=== PATIENT | female | born 1960 | race Caucasian/White ===

== ENCOUNTER 2017-09-05 17:05 | Emergency (ER) | payer BC ==
[2017-09-05 18:08] LABS: Hematocrit 42 % (35-47); Hemoglobin 14.8 g/dl (12.0-16.0); Mean Corpuscular HGB Conc 35 g/dl (31-36); Mean Corpuscular Hemoglobin 33 pg (27-31); Mean Corpuscular Volume 93 fL (80-97); Mean Platelet Volume 6 um3 (7.4-10.4); Red Blood Count 4.56 10^6/ul (4.0-5.4); Red Cell Distribution Width 13 % (10.5-15)
--- NOTE | 2017-09-05 18:08 | ED ---
Abdominal Pain/Female - HPI Summary HPI Summary: 56F presents with what described as muscle cramps in lower abdomen. They seem to happen in one spot in RLQ. She states started after cleaning house yesterday. She states pain last seconds. She states had three episodes of this yesterday and 5 episodes today. When pain comes it is sharp. She has had normal appetite. She has had normal BM today. She denies any n/v/d/c. She denies any fever. She denies any hematochezia, melena, dysuria, hematuria, flank pain, vaginal discharge, dysuria, frequency or urgency. She states this pain feels similar to gas bubbles has had in past. She denies any previous abdominal surgeries. - History of Current Complaint Chief Complaint: EDAbdPain Stated Complaint: RIGHT SIDE ABD PAIN Time Seen by Provider: 09/05/17 17:30 Pain Intensity: 0 Allergies/Adverse Reactions: Allergies Allergy/AdvReac Type Severity Reaction Status Date / Time Sulfa Antibiotics Allergy Hives Verified 09/05/17 17:49 PMH/Surg Hx/FS Hx/Imm Hx Endocrine/Hematology History: Denies: Hx Anticoagulant Therapy, Hx Diabetes Cardiovascular History: Reports: Hx Hypertension - Cancer History Hx Chemotherapy: No Hx Radiation Therapy: No Infectious Disease History: No Infectious Disease History: Denies: Traveled Outside the [place] in Last 30 Days - Family History Known Family History: Negative: Renal Disease - Social History Alcohol Use: None Substance Use Type: Reports: None Smoking Status (MU): Light Every Day Tobacco Smoker Review of Systems Negative: Fever Negative: Chest Pain Negative: Shortness Of Breath Positive: Abdominal Pain. Negative: Vomiting, Diarrhea, Nausea All Other Systems Reviewed And Are Negative: Yes Physical Exam Triage Information Reviewed: Yes Vital Signs On Initial Exam: Initial Vitals Temp Pulse Resp BP Pulse Ox 99.1 F 81 18 171/93 99 09/05/17 17:15 09/05/17 17:15 09/05/17 17:15 09/05/17 17:15 09/05/17 17:15 Vital Signs Reviewed: Yes Appearance: Positive: Well-Appearing Skin: Positive: Warm, Dry Head/Face: Positive: Normal Head/Face Inspection Eyes: Positive: Normal, EOMI, MICKY, Conjunctiva Clear ENT: Positive: Normal ENT inspection, Pharynx normal, TMs normal Respiratory/Lung Sounds: Positive: Clear to Auscultation, Breath Sounds Present Cardiovascular: Positive: Normal, RRR Abdomen Description: Positive: Nontender, Soft, Other: - neg rovsings, neg carnett sign Bowel Sounds: Positive: Present Musculoskeletal: Positive: Normal Neurological: Positive: Normal Psychiatric: Positive: Other - tearful - David Coma Scale Coma Scale Total: 15 Diagnostics - Vital Signs Vital Signs Temp Pulse Resp BP Pulse Ox 09/05/17 17:38 86 98 09/05/17 17:35 163/85 09/05/17 17:15 99.1 F 81 18 171/93 99 - Laboratory Result Diagrams: 09/05/17 18:01 09/05/17 18:01 Lab Statement: Any lab studies that have been ordered have been reviewed, and results considered in the medical decision making process. Abdominal Pain Fem Course/Dx - Course Course Of Treatment: 56F presents with what described as muscle cramps in lower abdomen. They seem to happen in one spot in RLQ. She states started after cleaning house yesterday. She states pain last seconds. She states had three episodes of this yesterday and 5 episodes today. When pain comes it is sharp. She has had normal appetite. She has had normal BM today. She denies any n/v/d /c. She denies any fever. She denies any hematochezia, melena, dysuria, hematuria, flank pain, vaginal discharge, dysuria, frequency or urgency. She states this pain feels similar to gas bubbles has had in past. She denies any previous abdominal surgeries. on exam abdomen soft nontender. in discussion patient brought up that has last two family memebers in past two months. This is first thanksgiving without father and is very tearful on exam. discussed with get labs but this is not a normal presentation for appendicitis. labs normal wbc and crp. abdominal exam at discharge is nontender. told to return if symptoms change and follow up with primary. patient understand and agrees with plan. - Diagnoses Differential Diagnosis: Positive: Appendicitis, Constipation, Urinary Tract Infection Provider Diagnoses: Abdominal pain Discharge - Discharge Plan Condition: Good Disposition: HOME Patient Education Materials: Acute Abdominal Pain (ED) Referrals: Priscilla Govea DO [Primary Care Provider] - Additional Instructions: Drink small amounts of fluid as tolerated When able to eat follow BRAT diet: Bananas, rice, applesauce, toast Take ibuprofen or Tylenol for pain as needed every 6 hours Follow up with primary within 5 days Return to ED if develop fever, severe abdominal pain, or any new or worsening symptoms
[2017-09-05 18:18] LABS: Urine Bacteria Absent (Absent); Urine Bilirubin Negative (Negative); Urine Glucose Negative (Negative); Urine Nitrite Negative (Negative)
[2017-09-05 18:23] LABS: Albumin 4.8 g/dL (3.2-5.2); BUN/Creatinine Ratio 14.4 (8-20); EGFR African American 83.9 (>60); EGFR Non-African American 65.2 (>60); Potassium 3.3 mmol/L (3.5-5.0); Total Bilirubin 0.4 mg/dL (0.2-1.0); Total Protein 7.8 g/dL (6.4-8.9)
[2017-09-05 18:53] VITALS: BP 138/71
--- NOTE | 2017-09-07 09:12 | PN ---
Progress Note - Progress Note Date of Service: 09/05/17 Note: patient see for abdominal pain. d/c with abdominal pain. normal labs, afebrile, unremarkable urine other than trace leuk. no urinary complaints. preliminary urine culture shows 25-50,000 of group b strep. no need for treatment at this time.
== END 2017-09-05 18:56 | disposition home or self-care (01) ==
LOC: ED 17:05
DX: R10.31 Right lower quadrant pain (principal); F17.210 Nicotine dependence, cigarettes, uncomplicated
CPT/HCPCS: 36415; 80053; 81003; 81015; 83605; 83690; 85025; 86141; 87077; 87086; 99282